=== PATIENT | male | born 1955 | race Asian ===

== ENCOUNTER 2018-12-14 13:21 | Emergency (ER) | payer OTHER ==
[~2018-12-14] VITALS: Ht 154.9 cm; Wt 50.8 kg
[2018-12-14 13:27] VITALS: BP 157/94
--- NOTE | 2018-12-14 13:45 | NUR ---
USED TOOL ROOM ATTENDANT PHONE [place]---FULL CLEAR SPEECH BUT AT TIMES WILL NOT RESPOND MOVING ALL EXTREMITIES EQUALLY---DENIES HEADACHE DOES NOT RECALL WHERE HE WAS OR OCCURENCE REMAINS C-COLLAR
--- NOTE | 2018-12-14 13:49 | NUR ---
PT AT CT FOR CODE BRAIN
--- NOTE | 2018-12-14 13:49 | NUR ---
JUAN JOSE RN MONITORING PT
[2018-12-14] MEDS ORDERED: NACL 0.9% 1,000 ML IV ONE (13:50)
--- NOTE | 2018-12-14 13:50 | NUR ---
PT GORDON WEBBER AT THIS TIME
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
--- NOTE | 2018-12-14 13:55 | NUR ---
PT RETURNED FROM CT
--- NOTE | 2018-12-14 13:56 | NUR ---
CXR AT BEDSIDE
--- NOTE | 2018-12-14 14:00 | NUR ---
LAB AT BEDSIDE
--- NOTE | 2018-12-14 14:02 | NUR ---
LAB AT BEDSIDE
--- NOTE | 2018-12-14 14:06 | NUR ---
PT ABLE TO SPEAK MINIMAL [facility]. ORIENTED TO NAME, IS AWARE OF HIS SURROUNDINGS. CAN'T RECALL EVENTS LEADING UP TO HOSPITAL ARRIVAL.
--- NOTE | 2018-12-14 14:21 | NUR ---
PT GIVEN URINAL FOR URINE SAMPLE
[2018-12-14 14:26] LABS: BASOPHILS # (AUTO) 0.1 K/uL (0.00-0.22); BASOPHILS % (AUTO) 1.2 % (0.0-2.0); EOSINOPHILS # (AUTO) 0.1 K/uL (0-0.4); EOSINOPHILS % (AUTO) 2.2 % (0.0-4.0); HEMATOCRIT 42.9 % (36-52); HEMOGLOBIN 14.3 g/dL (12.0-18.0); LYMPHOCYTES % (AUTO) 23.3 % (20.5-51.1); MEAN CORPUSCULAR HEMOGLOBIN 30 pg (27-31); MEAN CORPUSCULAR HGB CONC 33 g/dL (33-37); MEAN CORPUSCULAR VOLUME 88.9 fL (80-94); MONOCYTES # (AUTO) 0.5 K/uL (0.8-1.0); MONOCYTES % (AUTO) 10.5 % (1.7-9.3); NEUTROPHILS # (AUTO) 2.7 K/uL (1.8-7.7); NEUTROPHILS % (AUTO) 62.8 % (42.2-75.2); PLATELET COUNT (AUTO) 285 K/uL (140-450); RED BLOOD CELL COUNT(AUTO) 4.82 MIL/uL (4.20-6.10); RED CELL DISTRIBUTION WIDTH 14.3 % (11.6-13.7); WHITE BLOOD COUNT (AUTO) 4.4 K/uL (4.8-10.8)
[2018-12-14 14:34] LABS: ANION GAP 13.7 (8-16); CARBON DIOXIDE 26.6 mmol/L (21-32); CHLORIDE 97 mmol/L (98-107); CREATININE 0.9 mg/dL (0.7-1.3); GFR ARICAN-AMERICAN 110 mL/min (>90); GLUCOSE 93 mg/dL (74-106); POTASSIUM 4.3 mmol/L (3.5-5.1); SODIUM SERUM 133 mmol/L (136-145); UREA NITROGEN, BLOOD 10 mg/dL (7-18)
--- NOTE | 2018-12-14 14:41 | NUR ---
[facility] EMT AT BEDSIDE FOR EKG
[2018-12-14 14:48] LABS: ALBUMIN 3.7 g/dL (3.4-5.0); ASPARTATE AMINOTRANSFERASE 17 U/L (15-37); TOTAL BILIRUBIN 0.4 mg/dL (0.0-1.0)
[2018-12-14 14:55] LABS: APPEARANCE,URINE CLEAR (CLEAR); BILIRUBIN,URINE NEGATIVE (NEGATIVE); BLOOD, URINE NEGATIVE (NEGATIVE); COLOR,URINE YELLOW (YELLOW); LEUKOCYTE ESTERASE ,URINE NEGATIVE (NEGATIVE); NITRITE, URINE NEGATIVE (NEGATIVE); UGLUCOSE NEGATIVE (NEGATIVE)
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
[2018-12-14 15:04] LABS: BARBITURATE, URINE NEG. ng/ml (NEG <=200); BENZODIAZEPINE, URINE NEG. ng/mL (NEG <=200); CANNABINOID, URINE NEG. ng/mL (NEG <=50); COCAINE, URINE NEG. ng/mL (NEG <=300); OPIATE, URINE NEG. ng/mL (NEG <=2000); PHENCYCLIDINE SCREEN,URINE NEG. ng/mL (NEG <=25)
[2018-12-14 15:05] LABS: RBC,URINE 0 /HPF (0-5); WBC,URINE 0-5 /HPF (0-5)
--- NOTE | 2018-12-14 15:36 | NUR ---
PT AA0X4 AT THIS TIME. C-COLLAR IN PLACE. PT LAYING IN BED. Addendum: 12/14/18 at 1613 by [email or web address]. CANT RECALL THE MONTH OR YEAR.
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
--- NOTE | 2018-12-14 16:11 | NUR ---
PMH OF SEIZURES PER TRANSLATION
--- NOTE | 2018-12-14 16:35 | NUR ---
165/102 BP. 11 RR. 98% RA. 64 HR.
--- NOTE | 2018-12-14 17:36 | NUR ---
DR STANLYE WANTS PT TO BE TRANSFERED TO ANOTHER FACILITY FOR MRI Addendum: 12/14/18 at 1741 by [email or web address] CORRECTION- DR PERLA IS REQUESTING AN MRI
--- NOTE | 2018-12-14 18:12 | NUR ---
PT TO GO TO [facility] FOR MRI. [facility] SEARCHING FOR BED ASSIGNMENT.
[2018-12-14] MEDS ORDERED: PHENYTOIN 1,000 MG in NACL 0.9% 100 ML IV ONE (18:30)
[2018-12-14] MEDS ORDERED: PHENYTOIN 250 MG/5 ML VIAL IV ONE (18:44)
--- NOTE | 2018-12-14 18:50 | NUR ---
TRANSPORT TEAM 45 MIN ETA
--- NOTE | 2018-12-14 18:53 | NUR ---
PT REPORT GIVEN TO BRAD HOWARD AT [facility]. PT WILL GO TO ROOM 375B WITH DR HALLMAN.
--- NOTE | 2018-12-14 19:09 | NUR ---
REPORT GIVEN TO ALTAGRACIA HOWARD, TRANSFER OF CARE.
--- NOTE | 2018-12-14 19:10 | NUR ---
RECEIVED REPORT FROM ANITA CHRISTIANSON.
--- NOTE | 2018-12-14 19:49 | NUR ---
PT LEFT WITH [facility]- ALS TRANSPORT VIA GURNEY WITH VSS. PT AWAKE, ALERT, SPEAKING.
[2018-12-14 19:50] VITALS: BP 116/71
--- NOTE | 2018-12-22 08:36 | NUR ---
Late entry. Confirmed with RN that Dilantin infused IV until 194.
== END 2018-12-14 19:50 | disposition short-term general hospital (02) ==
LOC: EDBD 13:21 → MED 13:21
DX: S00.81XA Abrasion of other part of head, initial encounter (principal); G40.909 Epilepsy, unspecified, not intractable, without status epilepticus; X58.XXXA Exposure to other specified factors, initial encounter; Y93.89 Activity, other specified; Y92.89 Other specified places as the place of occurrence of the external cause; Y99.8 Other external cause status
CPT/HCPCS: 36415; 70450; 71045; 72125; 80053; 80185; 80305; 81001; 82948; 84484; 85025; 93005; 96365; 99285; G0482; J1165; J7030; Q0092

== ENCOUNTER 2019-02-23 18:26 | Emergency (ER) | payer OTHER ==
[~2019-02-23] VITALS: Ht 170.2 cm; Wt 63.5 kg
[2019-02-23 18:26] VITALS: BP 173/105
--- NOTE | 2019-02-23 18:28 | NUR ---
PT BIBA TO BED 09.
--- NOTE | 2019-02-23 18:30 | NUR ---
[employer] UTILIZED FOR TRIAGE. 

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
--- NOTE | 2019-02-23 19:12 | NUR ---
BEDSIDE REPORT GIVEN TO ANITA AMADOR. PT STABLE AT THE BEDSIDE.
--- NOTE | 2019-02-23 19:31 | NUR ---
pt laying in gurney no acute distress noted, gurney locked in lowest position. will continue to monitor.
--- NOTE | 2019-02-23 19:50 | NUR ---
Dr. Sorenson examining patient.
--- NOTE | 2019-02-23 19:51 | NUR ---
DR ANTOINE @ BEDSIDE, INTERPPRETER # [id number] USED.
--- NOTE | 2019-02-23 20:07 | NUR ---
EKG PERFORMED AT BEDSIDE
--- NOTE | 2019-02-23 20:19 | NUR ---
PT TAKEN TO CT
[2019-02-23 20:20] LABS: BASOPHILS # (AUTO) 0.1 K/uL (0.00-0.22); BASOPHILS % (AUTO) 1.3 % (0.0-2.0); EOSINOPHILS # (AUTO) 0.1 K/uL (0-0.4); EOSINOPHILS % (AUTO) 2.2 % (0.0-4.0); HEMATOCRIT 41.7 % (36-52); HEMOGLOBIN 14.1 g/dL (12.0-18.0); LYMPHOCYTES # (AUTO) 1.8 K/uL (2.0-11.5); LYMPHOCYTES % (AUTO) 34.4 % (20.5-51.1); MEAN CORPUSCULAR HEMOGLOBIN 30 pg (27-31); MEAN CORPUSCULAR HGB CONC 34 g/dL (33-37); MONOCYTES # (AUTO) 0.5 K/uL (0.8-1.0); MONOCYTES % (AUTO) 10.3 % (1.7-9.3); NEUTROPHILS # (AUTO) 2.7 K/uL (1.8-7.7); NEUTROPHILS % (AUTO) 51.8 % (42.2-75.2); PLATELET COUNT (AUTO) 235 K/uL (140-450); RED BLOOD CELL COUNT(AUTO) 4.69 MIL/uL (4.20-6.10); RED CELL DISTRIBUTION WIDTH 13.4 % (11.6-13.7); WHITE BLOOD COUNT (AUTO) 5.2 K/uL (4.8-10.8)
[2019-02-23 20:29] LABS: ANION GAP 10.2 (8-16); CARBON DIOXIDE 29.3 mmol/L (21-32); CHLORIDE 105 mmol/L (98-107); CREATININE 0.9 mg/dL (0.7-1.3); GFR ARICAN-AMERICAN 110 mL/min (>90); GLUCOSE 123 mg/dL (74-106); POTASSIUM 3.5 mmol/L (3.5-5.1); SODIUM SERUM 141 mmol/L (136-145); UREA NITROGEN, BLOOD 13 mg/dL (7-18)
[2019-02-23 20:35] LABS: ALBUMIN 3.4 g/dL (3.4-5.0); ASPARTATE AMINOTRANSFERASE 9 U/L (15-37); TOTAL BILIRUBIN 0.4 mg/dL (0.0-1.0)
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
[2019-02-23 22:10] VITALS: BP 145/82
== END 2019-02-23 22:00 | disposition home or self-care (01) ==
LOC: MED 18:26
DX: G47.00 Insomnia, unspecified (principal); Z86.69 Personal history of other diseases of the nervous system and sense organs
CPT/HCPCS: 36415; 70450; 71045; 80053; 84484; 85025; 93005; 99284; G0482